=== PATIENT | male | born 2000 | race Caucasian/White ===

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

== ENCOUNTER 2022-10-01 14:39 | Inpatient (IN) | payer OTHER ==
[~2022-10-01] VITALS: Ht 157.5 cm; Wt 36.1 kg
[~2022-10-01 14:39] MED LIST changes: -TRANXENE T-TAB7.5 MG PO; +TRANXENE T-TAB7.5 MG PT
--- OUTSIDE RECORDS SUMMARY | 2022-10-01 14:43 | XMS ---
PreManage Notification: VITA CHATTERJEE Security [employer] Events No recent Security Events currently on file CRITERIA MET - [facility] CARE PROVIDERS -, [place]- Dentist: Automotive Diagnostic Technician [facility] PHONE: [phone] AMADOR TRUJILLO Physician Heart Doctor Current PHONE: [phone] MAXWELL CAVAZOS 05/24/2020-Current PHONE: Unknown Care Guidelines exist for the following facilities: [facility] ( 08/25/2018 ) [place] VISIT COUNT (12 MO.) 1 [facility] Par[facility] TOTAL 1 NOTE: Visits indicate total known visits. ED/UCC VISIT TRACKING (12 MO.) 10/01/2022 14:41 [facility] [place] TYPE: Emergency COMPLAINT: - FEVER INPATIENT VISIT TRACKING (12 MO.) No inpatient visits to display in this time frame [email or web address]
[2022-10-01 15:23] LABS: BASOPHILS 0.2 % (0-2); EOSINOPHILS 0.2 % (0-6); HEMATOCRIT 47.4 % (35.0-50.0); HEMOGLOBIN 14.9 g/dL (12.0-18.0); LYMPHOCYTES 10.9 % (24-44); MCH 30.6 (27-36); MCHC 31.5 g/dl (30-36); MCV 97.4 fl (81-99); MONOCYTES 2.5 % (0-12); NEUTROPHILS 86.2 % (39-80); PLATELET COUNT 119 K/uL (140-440); RBC 4.87 M/ul (4.3-5.7); RDW 14.8 (10.5-15.0)
[2022-10-01 15:38] LABS: ALBUMIN 3.4 g/dL (3.4-5.0); ALBUMIN/GLOBULIN RATIO 0.74 (1.1-2.4); BILIRUBIN, TOTAL 0.8 ng/dL (0.2-1.0); BUN/CREATININE RATIO 32.55 (6.0-28.6); CALCIUM 9.3 mg/dL (8.5-10.1); CREATININE, SERUM 1.29 mg/dL (0.70-1.30); POTASSIUM 4.3 mmol/L (3.5-5.1)
[2022-10-01 15:45] LABS: BILIRUBIN, URINE NEGATIVE (negative); BLOOD/HGB, URINE LARGE (Negative); KETONE, URINE NEGATIVE (Negative); LEUK ESTERASE, URINE LARGE (negative); NITRITE, URINE POSITIVE (negative); PH, URINE 8.5 (5-7)
[2022-10-01 15:46] LABS: LACTIC ACID, BLOOD 2.9 mmol/L (0.4-2.0)
[2022-10-01 15:50] LABS: ANION GAP 13.3 (7-21)
[2022-10-01 15:51] LABS: RED BLOOD CELLS, URINE 21-40 /hpf (0-5); WHITE BLOOD CELLS, URINE >50 /HPF (0-5)
[2022-10-01 15:52] LABS: BACTERIA, URINE 2+ /hpf (negative); CASTS, URINE NONE SEEN \\lpf; COLLECTION TYPE, URINE CLEAN CATCH; CRYSTALS, URINE NONE SEEN (0-1+); EPITHELIAL CELLS, URINE 0 /lpf (0-1+); REFLEX CULTURE, URINE Yes (No)
[2022-10-01 15:58] LABS: INFLUENZA B NAA NEGATIVE (NEGATIVE); RESPIRATORY SYNCYTIAL VIR NAA NEGATIVE (NEGATIVE)
--- NOTE | 2022-10-01 17:35 | NUR ---
PT ADMITTED TO CCU ROOM 127 FOR SEPSIS/HYPERNATREMIA. MOM AND SISTER PRESENT. REPORT RECEIVED FROM ED RN. PT IS AWAKE AND MAKING PURPOSEFUL MOVEMENT. MOM STATES PT IS NONVERBAL AT BASELINE. ADMISSION PROCESS STARTED.
--- NOTE | 2022-10-01 17:53 | NUR ---
IN TO SEE PT.
[2022-10-01 17:57] VITALS: BP 82/49
[2022-10-01 18:36] LABS: ANION GAP 11.9 (7-21); BUN/CREATININE RATIO 34.67 (6.0-28.6); CALCIUM 8.9 mg/dL (8.5-10.1); CREATININE, SERUM 1.24 mg/dL (0.70-1.30); POTASSIUM 3.9 mmol/L (3.5-5.1)
--- NOTE | 2022-10-01 19:07 | NUR ---
MOM LEAVING TO GET MAGNET, WILL BE RETURNING SOON TO SPEND THE NIGHT. DR WILSON INFORMED AND AWARE OF RECENT CRITICAL LAB VALUES.
[2022-10-01 20:00] VITALS: BP 83/70
[2022-10-01 20:30] VITALS: BP 91/60
--- NOTE | 2022-10-01 20:30 | NUR ---
PT ASSESSED AND FOUND TO BE LAYING IN HOSPITAL BED WITH MOTHER AT BEDSIDE. PT IS NON-VERBAL, DOES NOT FOLLOW COMMANDS AND APPEARS LETHARGIC. MOTHER STATES PT SEEMS MUCH IMPROVED FROM WHEN SHE INITIALLY BROUGHT THE PT TO THE ED. V/S ASSESSED AND SAFETY CHECK PERFORMED. ALARM PERAMATERS SET AND PIV ASSESSED, FOUND TO BE PATENT. DR. WILSON CONSULTED REGARDING ELEVATED SODIUM LEVELS, AND SBP LESS THAN 90. THIS RN REQUESTED FREE WATER FLUSHES BUT NO NEW ORDERS OBTAINED. REQUESTING TO KEEP MAP ABOVE 65. CALL LIGHT PROVIDED TO MOTHER.
[2022-10-01 20:35] LABS: ANION GAP 12.2 (7-21); BUN/CREATININE RATIO 33.87 (6.0-28.6); CREATININE, SERUM 1.24 mg/dL (0.70-1.30); POTASSIUM 4.2 mmol/L (3.5-5.1)
--- NOTE | 2022-10-01 21:45 | NUR ---
DR. WILSON CONSULTED REGARDING NA GOAL AND TREATMENT FOR REDUCTION OF NA. DDAVP AND D5W DISCUSSED, HOWEVER, NO NEW ORDERS OBTAINED.
[2022-10-01 22:00] VITALS: BP 86/71
[2022-10-01 23:00] VITALS: BP 89/62
--- NOTE | 2022-10-01 23:53 | NUR ---
LAB UNABLE TO OBTAIN BLOOD SAMPLE. NINA CABRERA TRAINED IN US GUIDED IVS, UNABLE TO ESTABLISH SECONDARY IV ACCESS. THIS RN UNABLE TO OBTAIN IV.
[2022-10-02] VITALS (24 sets, daily range): BP systolic 66–131; BP diastolic 34–89
--- NOTE | 2022-10-02 | NUR ---
ATTEMPTED USGIV X2 WITHOUT SUCCESS IN LEFT AC. PT TOLERATED WELL.
--- NOTE | 2022-10-02 00:24 | NUR ---
DR. WILSON CALLED REGARDING CONCERN FOR HYPOTENSION, FEVER, INCREASED LETHARGY, INABILLITY TO OBTAIN BLOOD SAMPLE AND CONCERN FOR WORSENING SEPSIS AND NEED FOR CENTRAL LINE PLACEMENTAND/OR HIGHER LEVEL OF CARE. DR. WILSON COMING TO BEDSIDE.
--- NOTE | 2022-10-02 00:59 | NUR ---
DR. ANGULO AT BEDSIDE. CONSENT FOR CENTRAL LINE AND SEDATION SIGNED BY MOTHER. TIME OUT PERFORMED AND PT PREPPED FOR CENTRAL LINE PLACEMENT.
[2022-10-02 01:30] LABS: ANION GAP 10.3 (7-21); BUN/CREATININE RATIO 32.74 (6.0-28.6); CALCIUM 8.7 mg/dL (8.5-10.1); CREATININE, SERUM 1.13 mg/dL (0.70-1.30); POTASSIUM 3.3 mmol/L (3.5-5.1)
--- NOTE | 2022-10-02 01:59 | NUR ---
started IV bolus, MD at bedside, stated to have labs re-drawn after bolus and notify him with results to reasses plan of care, mom at bedside now resting
--- NOTE | 2022-10-02 02:41 | NUR ---
PT NOTED TO HAVE EKG CHANGES. 12 LEAD EKG ORDERED.
[2022-10-02 03:17] LABS: ANION GAP 13.1 (7-21); BUN/CREATININE RATIO 34.06 (6.0-28.6); CALCIUM 7.9 mg/dL (8.5-10.1); CREATININE, SERUM 0.91 mg/dL (0.70-1.30); POTASSIUM 3.1 mmol/L (3.5-5.1)
--- NOTE | 2022-10-02 03:27 | NUR ---
LAB CALLED TO REPORT CRITICAL NA AT 164. K NOTED TO BE AT 3.1. DR. WILSON CALLED REGARDING CRITICAL NA, AND K OF 3.1. ADVISED TO CONTINUE 1/2 NS AT 150/HR, CONTINUE Q-[address] WILSON TO PUT IN ORDERS FOR K-REPLACEMENT. DR. WILSON ALSO NOTIFIED REGARDING EKG RESULTS.
--- NOTE | 2022-10-02 04:26 | NUR ---
K REPLACEMENT NOT AVAILABLE IN ICU. HOUSE SUP AWARE AND TO BRING K REPLACEMENT TO UNIT WHEN AVAILABLE.
[2022-10-02 05:11] LABS: HEMOGLOBIN 12.7 g/dL (12.0-18.0)
[2022-10-02 05:13] LABS: HEMATOCRIT 40.8 % (35.0-50.0); MCH 30.4 (27-36); MCHC 31.2 g/dl (30-36); MCV 97.4 fl (81-99); PLATELET COUNT 120 K/uL (140-440); RBC 4.18 M/ul (4.3-5.7); RDW 14.5 (10.5-15.0)
[2022-10-02 05:18] LABS: ANION GAP 8.4 (7-21); BUN/CREATININE RATIO 29.78 (6.0-28.6); CALCIUM 8.5 mg/dL (8.5-10.1); CREATININE, SERUM 0.94 mg/dL (0.70-1.30); POTASSIUM 3.4 mmol/L (3.5-5.1)
[2022-10-02 05:28] LABS: BANDS, MANUAL DIFF 31; BASOPHILS, MANUAL DIFF 1; LYMPHOCYTES, MANUAL DIFF 11; NEUTROPHILS, MANUAL DIFF 57
--- NOTE | 2022-10-02 05:41 | EKG ---
[facility] [address] [facility] [place] [address] Signed Unusual P axis, possible ectopic atrial rhythm with undetermined rhythm irregularity Prolonged QT Abnormal ECG No previous ECGs available Confirmed by YANELI WILSON MD ([id number]) on 10/02/2022 5:40:57 AM Electronically Signed By: YANELI WILSON 10/02/22 0541 PATIENT NAME: VITA CHATTERJEE Electrocardiogram DATE OF : [birth year] PHYSICIAN: YANELI WILSON REPORT #: [id number] REPORT IS CONFIDENTIAL AND NOT TO BE RELEASED WITHOUT AUTHORIZATION
--- NOTE | 2022-10-02 06:44 | NUR ---
PT REMAINS LETHARGIC, BUT ALERT AND ABLE TO LOCALIZE PAIN. PT HAS BEEN IN ST TO ACCELERATED JUNCTIONAL RHYTHM, HYPOTENSIVE AND FEBRILE. PT CONTINUES TO REQUIRE NOREPI GTT, NOW AT [address] WILSON AWARE AND WILL ADD NEW ORDERS IF NOREPI REQUIREMENTS RISE ABOVE 30 MCGS. PT FEBRILE X 2 THROUGHOUT THE NIGHT. PRN TYLENOL ADMINISTERED. TRIPLE LUMIN CVC PLACED LAST NIGHT AROUND 0100 HRS. PLACEMENT CONFIRMED BY X-RAY AND CVC SECURED WITH SUTURES AND DRESSING. PT WITH ADEQUATE U/O. LABS: NA 163, K 3.4, BUN/ CREATININE STABLE. PT WITH WORSEN[place] [address]. MAG ORDERED AND BMP DRAWN AT 0700
[2022-10-02 07:18] LABS: BUN/CREATININE RATIO 23.36 (6.0-28.6); CALCIUM 8.5 mg/dL (8.5-10.1); CREATININE, SERUM 1.07 mg/dL (0.70-1.30)
--- NOTE | 2022-10-02 07:30 | NUR ---
REPORT RECIEVED FROM ACID CONCENTRATOR RN. PATIENT RESTING IN BED WITH HIS MOM KOBI AT THE BEDSIDE. PATIENT ON 27MCG/MIN LEVOPHED WITH 80'S SYSTOLIC AND MAP <60. TITRATED UP TO 30MCG/MIN PER ORDERS. PATIENT IS NON-VERBAL PER REPROT. PATIENT RESTING AND PATIENTS MOM LAYING ON THE COUCH. CALL LIGHT WITHIN REACH.
--- NOTE | 2022-10-02 09:00 | NUR ---
PATIENT ASSESSMENT COMPLETE. PATIENTS BREATH SOUNDS CLEAR AND PATIENT ON RA. PATIENT BOWEL TONES HYPOACTIVE. PATIENT HAS BOTH A G-TUBE AND J-TUBE. PATIENTS SKIN IS VERY FRAGILE. PATIENT HAS ALLYVN ON HEELS, HIPS, AND COCCYX. PATIENT NOTED TO HAVE A SORE ON HIS COCCYX. WILL HAVE PATIENT ON Q2 TURNS. PATIENT HEEL PROTECTORS ON. PATIENT STATED ON VASOPRESSIN PER ORDERS AND PUTT ON THE LOWEST POSSIBLE DOSE PER MD. PATIENTS MOM AT THE BEDSIDE AND REVIEWED PLAN OF CARE WITH HIS MOM. MD WILL BE WORKING ON TRANSFER FOR PATIENT.
[2022-10-02 09:25] LABS: ANION GAP 11.2 (7-21); BUN/CREATININE RATIO 22.54 (6.0-28.6); CALCIUM 8.6 mg/dL (8.5-10.1); CREATININE, SERUM 1.02 mg/dL (0.70-1.30); POTASSIUM 4.2 mmol/L (3.5-5.1)
--- NOTE | 2022-10-02 10:02 | NUR ---
MOM STATES THE PATIENT HAS BEEN ON A REGIMEN OF JEVITY FORMULA (SHE DOESN'T KNOW IF IT'S 1.0, 1.2, OR 1.5) RUNNING 145 ML/HR CONTINUOUS FEED DURING THE DAY UNTIL THE FORMULA IS DONE. SHE GIVES HIM AT LEAST 32 OZ OF WATER PER DAY. SHE WILL GIVE HIM MORE IF SHE FEELS HE NEEDS IT. SHE INFUSES THE WATER EITHER AFTER THE FORMULA IS DONE OR SOMETIMES SHE MIXES IT IN WITH THE FORMULA. SHE SOMETIMES DOESN'T GIVE HIM THE ENTIRE FEEDING IF HE IS "BACKED UP" OR NOT FEELING WELL. IN 2019 SHE SAID HIS WEIGHT WAS 99 LBS. ON ADMIT IT WAS 79 LBS. MOM WILL NEED TO WORK WITH A DIETITIAN TO INCREASE HIS CALORIES FOR WEIGHT GAIN. IF THE PATIENT STAYS HERE, WE WILL NEED TO CLARIFY IF IT'S JEVITY 1.0 OR 1.2 FORMULA. I SUGGEST FOLLOWING THE SAME TF SCHEDULE THEY DO AT HOME. I WILL CHECK WITH PHARMACY IF WE CAN GET JEVITY 1.0 FORMULA OR NOT.
--- NOTE | 2022-10-02 10:48 | NUR ---
PER NURSING STAFF PATIENT IS NONVERBAL. FAMILY NOT IN ROOM. DID NOT ATTEMPT VISIT. PRAYED SILENT PRAYER FOR HEALING AND PEACE.
--- NOTE | 2022-10-02 11:15 | NUR ---
LABS DRAWN PER ORDERS. PATIENT RESTING IN BED. PATIENT REMAINS DROWSY. PATIENT OPENS EYES TO STIMULATION AND THEN QUICKLY CLOSES THEM AGAIN.
--- NOTE | 2022-10-02 11:15 | NUR ---
LABS DRAWN AND SENT PER ORDERS. PATIENT RESTING IN BED. PATIENT REMAINS DROWSY, BUT WILL OPEN HIS EYES TO STIMULATION. PATIENTS MOM LEFT AND IS NOT AT THE BEDSIDE AT THIS TIME. MD WORKING ON PATIENT TRANSPORT. LEVOPHED AT 27MCG/MIN PER ORDERS AND VASOPRESSIN AT 0.01 UNITS PER MIN PER MD. MD WANTS THE VASOPRESSIN AT THE LOWEST POSSIBLE AMOUNT.
[2022-10-02 11:30] LABS: ANION GAP 10.7 (7-21); BUN/CREATININE RATIO 20.75 (6.0-28.6); CALCIUM 8.4 mg/dL (8.5-10.1); CREATININE, SERUM 1.06 mg/dL (0.70-1.30); POTASSIUM 3.7 mmol/L (3.5-5.1)
--- NOTE | 2022-10-02 12:10 | NUR ---
PATIENT MOM BACK AT THE BEDSIDE AND UPDATED ON PLAN OF CARE. PATIENT CHANGED AND REPOSITIONED WITH PILLOW SUPPORT. PATINETS CONDOM CATH WAS TOO BIG AND DID NOT COLLECT URINE. PADS CHANGED.
--- NOTE | 2022-10-02 12:25 | NUR ---
MD WILSON IN TO SPEAK WITH PATIENTS SHARAN PEACE TO UPDATE ON PLAN OF CARE. ACCEPTING MD AT [facility]. AWAITING BED CONFIRMATION. GEOVANNY RN NET APPLICATIONS DEVELOPER IN TO WORK ON PATIENTS DISCHARGE. FLUIDS DECREASED TO 30MLS PER HOUR PER MD.
--- NOTE | 2022-10-02 12:55 | NUR ---
SPOKE TO THE MOTHER ABOUT THE DISCHARGE PLAN.PATIENT HAS ANGELMAN SYNDROME.PATIENT WILL BE TRANSFERED TO [facility] TODAY FOR A HIGHER LEVEL OF CARE. WAITING PLACEMENT.
[2022-10-02] MEDS ORDERED: MAALOX ADVANCE355 ML PT (13:11)
--- NOTE | 2022-10-02 13:12 | NUR ---
MED REC COMPLETE
--- NOTE | 2022-10-02 14:05 | NUR ---
[facility] HERE AT 1320. LABS SENT AND MEDICATIONS GIVEN PER MD WILSON. 2 BAGS OF LEVOPHED PULLED FROM [employer]. 1 BAG EMPTY AND 1 BAG SENT FOR INFLIGHT. PATIENT WAS AWAKE WITH TRANSFER AND MOANING. [facility] AND GAVE PRN MEDICATIONS FOR ANXIETY/PAIN. DIFFICULT TO KNOW IF PATIENT IS IN PAIN OR ANXIETY. PATIENTS MOM AND SISTER AT THE BEDSIDE. MAGNET FOR VAGUS NERVE STIMULATOR SENT WITH CREW AND G-TUBE ATTACHMENT PIECE. DRESSING AROUND G AND JTUBE CHANGED PRIOR TO TRANSFER. PATIENTS HOME MEDICATIONS SENT WITH KOBI (MOTHER). ALL BELONGINGS SENT WITH PATIENTS MOM. NO OTHER QUESTIONS AT THIS TIME.
--- NOTE | 2022-10-02 14:45 | NUR ---
REPORT CALLED AND GIVEN TO DELMA WOOD AT [facility]. UPDATED ON PLAN OF CARE. BC CAME BACK POSITIVE AND WERE REPORTED TO RN. NO OTHER QUESTIONS AT THIS TIME.
[2022-10-02 14:56] LABS: ANION GAP 8.7 (7-21); BUN/CREATININE RATIO 18.26 (6.0-28.6); CALCIUM 8.3 mg/dL (8.5-10.1); CREATININE, SERUM 1.04 mg/dL (0.70-1.30); POTASSIUM 3.7 mmol/L (3.5-5.1)
--- NOTE | 2022-10-02 15:05 | NUR ---
CALLED AND UPDATED JOHN WOOD AT [facility] OF LABS COMPLETED AT 1335 PRIOR TO PATIENT TRANSFER.
[2022-10-03 14:12] LABS: OSMOLALITY 332 mOsm/kg (280-303)
== END 2022-10-02 14:00 | disposition short-term general hospital (02) | DRG 871 ==
LOC: ED 14:39 → CCU 17:14
PROVIDERS: Emergency Medicine; ADMIT Family Medicine; ATTEND Family Medicine
PROC: 3E03329 Introduction of Other Anti-infective into Peripheral Vein, Percutaneous Approach (ICD-10-PCS; principal; 2022-10-01)
PROC: 02H633Z Insertion of Infusion Device into Right Atrium, Percutaneous Approach (ICD-10-PCS; 2022-10-02)
PROC: B548ZZA Ultrasonography of Superior Vena Cava, Guidance (ICD-10-PCS; 2022-10-02)
PROC: 3E033XZ Introduction of Vasopressor into Peripheral Vein, Percutaneous Approach (ICD-10-PCS; 2022-10-02)
DX: A41.9 Sepsis, unspecified organism (principal); R65.21 Severe sepsis with septic shock; N39.0 Urinary tract infection, site not specified; E87.0 Hyperosmolality and hypernatremia; Q93.51 Angelman syndrome; K59.00 Constipation, unspecified; G40.909 Epilepsy, unspecified, not intractable, without status epilepticus; E87.6 Hypokalemia; E86.0 Dehydration; Z20.822 Contact with and (suspected) exposure to COVID-19; Z79.899 Other long term (current) drug therapy; Z98.890 Other specified postprocedural states; Z88.1 Allergy status to other antibiotic agents; Z93.1 Gastrostomy status; Z96.82 Presence of neurostimulator; Z74.01 Bed confinement status
CPT/HCPCS: 36415; 36556; 71045; 80048; 80053; 81001; 83605; 83735; 83930; 83935; 85025; 85060; 87040; 87088; 87502; 93005; 93010; A9270; C9803; J0696; J1720; J2270; J2543; J3480; J3490; J7030; J7060; U0002